=== PATIENT | male | born 1955 | race Caucasian/White ===

== ENCOUNTER 2017-03-19 13:02 | Day surgery (SDC) | payer OTHER ==
[~2017-03-19] VITALS: Ht 167.6 cm; Wt 81.8 kg
[2017-03-19 14:09] VITALS: Ht 167.6 cm; Wt 81.8 kg
[2017-03-19] MEDS ORDERED: CHOL400T10 PO (14:17)
[2017-03-19] MEDS ORDERED: OMEP20CA16 PO (14:17)
[2017-03-19] MEDS ORDERED: AMLO-145 PO (14:17)
[2017-03-19] MEDS ORDERED: PRAV10TA43 PO (14:17)
[2017-03-19 15:44] VITALS: BP 133/81; PULSE 68; RESP 18
--- NOTE | 2017-03-19 16:29 | OPPN ---
Date/Time of Note Date/Time of Note DATE: 03/19/17 TIME: 16:23 Proc Note GI Procedure Date 03/19/17 Indication: screening/surveillance Pre-procedure Diagnosis CRC screening Post-procedure Diagnosis Impression: Multiple colonic polyps as follows: 2 small 3 mm rectal polyps. Ablated 3 small 2-3 mm polyps in the distal sigmoid. Ablated 5 mm sessile polyp descending colon. Ablated 5 mm sessile polyp in proximal sigmoid colon. Ablated Left-sided diverticulosis, moderate Moderate-sized internal hemorrhoids Plan: Follow up as scheduled] High fiber diet Annual hemoccult stool testing [Review pathology] [Surveillance colonoscopy in 3 years] . Procedure Performed: Other (Anoscopy plus polyp ablation) Surgeon RAJAT KNIGHT MD See signature line Flap Lining Binder none Anesthesia Type: moderate sedation (Versed 5 mg/fentanyl 100 mcg) Tourniquet Time none EBL none Transfusion required none Biopsy 1: None Polyp 1: Rectal polyp 2 Polyp 2: Distal sigmoid polyp 3 Polyp 3: Descending colon polyp Additional Polyp: Proximal sigmoid colon polyp Grafts/Implants none Tubes/Drains none Complication(s) none Disposition: home Procedure Description After informed consent, with the patient/relatives understanding the procedure, its indications and potential risks and complications, including but not limited to: Allergic reaction, bleeding, perforation, infection, and after all pertinent questions were answered to the patient's satisfaction, the patient/ relatives signed the witnessed informed consent. Following this, premedication was administered slowly IV push under careful cardiovascular and respiratory monitoring with pulse OXIMETRY, automatic blood pressure, and child monitor. Once the sedative effect was achieved, the patient was placed in the left lateral decubitus position, digital rectal examination was performed. The colonoscope was then introduced and advanced under visual control throughout all segments of the colon including: []the rectum, sigmoid, descending colon, splenic flexure, transverse colon, hepatic flexure, ascending colon and finally reaching the cecum which was clearly identified by transillumination, finger indentation and the ileocecal valve. Careful examination of the mucosa of the lower gastrointestinal tract both on insertion as well as withdrawal of the instrument disclosed the following findings: PREPARATION QUALITY: [Adequate], RECTAL EXAM: The anorectal area was visualized examined and digital rectal examination performed with the following findings: No evidence of perirectal disease, no masses. COLONIC MUCOSA: The mucosa of all segments of the colon was carefully examined and showed the following findings: There are multiple polyps in the colon as follows: 2 small 3 mm rectal polyps. Ablated; 3 small 2-3 mm polyps in the distal sigmoid. Ablated; 5 mm sessile polyp descending colon. Ablated; 5 mm sessile polyp in proximal sigmoid colon. Ablated. There is moderate diverticulosis left;. Moderate-sized internal hemorrhoids are present. Otherwise the examined mucosa appears within normal limits. There is no evidence of inflammatory changes, other neoplasms, vascular malformation, or any other abnormality. The instrument was then withdrawn, the patient tolerated the procedure well and was transferred out of the Endoscopy Suite awake and in good condition to continue recovery under observation. Copies To: CC: RAJAT KNIGHT MD, MORDO MD Mar 19, 2017 16:29
--- NOTE | 2017-03-19 16:31 | OPPN ---
Date/Time of Note Date/Time of Note DATE: 03/19/17 TIME: 16:29 Proc Note GI Procedure Date 03/19/17 Indication: other (Dyspepsia) Pre-procedure Diagnosis Dyspepsia Post-procedure Diagnosis Impression: Mild distal esophagitis Moderate gastritis. Rule out H. pylori infection. Biopsies obtained Otherwise normal EGD Plan: Continue PPI therapy Review pathology as soon as available . Procedure Performed: Other (EGD with biopsies) Surgeon RAJAT KNIGHT MD See signature line Zoning Technician none Anesthesia Type: moderate sedation (Versed 5 mg/fentanyl 100 mcg) Tourniquet Time none EBL none Transfusion required none Biopsy 1: Gastric body and antrum. Rule out H. pylori infection. Grafts/Implants none Tubes/Drains none Complication(s) none Disposition: home Procedure Description Preoperative Diagnosis: After informed consent, with the patient/relatives understanding the procedure, its indications, potential risks and complications, including but not limited to : allergic reaction, bleeding, perforation or infection, and after all pertinent questions were answered to the patients satisfaction, the patient/ relatives signed witnessed informed consent. Following this, premedication was administered slowly IV push under careful cardiovascular and respiratory monitoring with pulse oximetry, automatic blood pressure, and satellite project site monitor. Once the sedative effect was achieved the patient was place in the left lateral decubitus, the panendoscope was introduced and advanced under visual control. Careful examination of the upper gastrointestinal tract, both on insertion as well as withdrawal of the instrument disclosing the following findings: ESOPHAGUS: the mucosa of the entire esophagus was carefully examined and showed the following findings: There is mild inflammation of the esophagogastric junction area. Otherwise the mucosa appears within normal limits. There is no evidence of varices, neoplasm, or stricture. No Hiatal Hernia identified. STOMACH: Upon entrance to the stomach air was insufflated, the gastric gentile distended normally. The mucosa of the fundus, body and antrum of the stomach was carefully examined both head-on and on retroflexion, and showed the following findings: There is moderate erythema and edema of the mucosa of the body and antrum of the stomach. Biopsies were obtained to rule out H. pylori infection. Otherwise the mucosa appears within normal limits with no abnormalities. There is no evidence of ulcers or neoplasm. PYLORUS: The pylorus was carefully examined and showed the following findings: the pylorus appears patent and within normal limits, with no evidence of gastric outlet obstruction. DUODENUM: The duodenal mucosa was carefully examined in the duodenal bulb as well as the second portion of the duodenum and showed the following findings: the mucosa appears unremarkable with no evidence of duodenitis, ulcer or neoplasm. Copies To: CC: RAJAT KNIGHT MD, MORDO MD Mar 19, 2017 16:31
[2017-03-19] MEDS ORDERED: MIDAZOLAM 1 MG/ML 2 ML INJ ONE ×3 (16:40)
[2017-03-19] MEDS ORDERED: FENTAnyl 50 MCG/ML VIAL ONE (16:40)
[2017-03-19 17:00] VITALS: BP 110/71; RESP 14
== END 2017-03-19 17:06 | disposition home or self-care (01) ==
LOC: GIL 13:02
PROVIDERS: ATTEND Internal Medicine Gastroenterology
DX: Z12.11 Encounter for screening for malignant neoplasm of colon (principal); K20.9 Esophagitis, unspecified; I10 Essential (primary) hypertension; E78.00 Pure hypercholesterolemia, unspecified; F17.200 Nicotine dependence, unspecified, uncomplicated; K62.1 Rectal polyp; K63.5 Polyp of colon; K29.70 Gastritis, unspecified, without bleeding
CPT/HCPCS: 43239; 45388; 88305; J2250; J3010; Z7610